=== PATIENT | male | born 1965 | race Two or more races ===

== ENCOUNTER 2025-03-31 13:41 | Emergency (ER) | payer OTHER ==
[~2025-03-31] VITALS: Ht 182.9 cm; Wt 78.9 kg
[2025-03-31] MEDS ORDERED: PEPCID20 MG (13:51)
[2025-03-31 13:52] VITALS: BP 138/95; O2SAT 100
[2025-03-31] MEDS ORDERED: KETOROLAC TROMETHAMINE 30 MG VIAL IV ONE (15:45)
[2025-03-31] MEDS ORDERED: 0.9 % SODIUM CHLORIDE 500 ML IV ONE (15:45)
[2025-03-31] MEDS ORDERED: KETOROLAC TROMETHAMINE 30 MG VIAL ONE (16:19)
[2025-03-31 17:02] LABS: BASO % 0.3 % (0.1-1.2); EOS # 0.14 (0.04-0.54); HEMATOCRIT 43.3 % (40.1-51.0); HEMOGLOBIN 14.9 g/dL (13.7-17.5); LYMPH # 2.44 (1.18-3.74); LYMPH % 34.6 % (19.3-53.1); MEAN CORPUSCULAR HEMOGLOBIN 29.4 pg (25.6-32.2); MONO # 0.48 (0.24-0.82); MONO % 6.8 % (4.7-12.5); NEUT # 3.96 (1.56-6.13); NEUT % 56.2 % (34.0-71.1); PLATELET COUNT 264 K/uL (163-369); RED BLOOD COUNT 5.06 M/uL (4.63-6.08); RED CELL DISTRIBUTION WIDTH 12.2 % (11.6-14.4)
[2025-03-31 17:34] LABS: ALBUMIN 4.3 gm/dL (3.4-5.0); BILIRUBIN TOTAL 0.94 mg/dL (0.3-1.2); CALCIUM 9.1 mg/dL (8.5-10.1); CREATININE SERUM 1.03 mg/dL (0.70-1.30); GFR 74.43; GLOBULINA 3.3 G/DL (2.4-3.5); POTASSIUM 4.1 mEq/L (3.5-5.1); TOTAL PROTEIN 7.6 gm/dL (6.4-8.2)
[2025-03-31] MEDS ORDERED: DICLOFENAC SODI50 MG PO (19:24)
== END 2025-03-31 19:49 | disposition home or self-care (01) ==
LOC: ER 13:41
PROVIDERS: General Practice
DX: R10.31 Right lower quadrant pain (principal); M79.18 Myalgia, other site; K76.0 Fatty (change of) liver, not elsewhere classified; K76.89 Other specified diseases of liver; Z88.8 Allergy status to other drugs, medicaments and biological substances